=== PATIENT | female | born 1950 | race Caucasian/White ===

== ENCOUNTER 2024-10-01 16:55 | Inpatient (IN) | payer MEDICARE ==
[2024-10-01] MEDS: methylPREDNISolone SOD SUCCI 125 MG/2 ML VIAL IV STA (18:30)
[2024-10-01] MEDS: LACTATED RINGERS 1,000 ML IV ONE (18:32)
[2024-10-01] MEDS: MAGNESIUM SULFATE-D5W PMX 1 GM in DEXTROSE/WATER 1 100ML.BAG IVPB STA (18:33)
[2024-10-01 18:49] LABS: ALT 21 U/L (4-34); AST 31 U/L (14-36); African American GFR (CKD) 79 (>60 ml/min/1.73 sqM); Albumin 3.9 g/dL (3.5-5.0); Alkaline Phosphatase 68 U/L (38-126); Anion Gap 8 mmol/L; Blood Urea Nitrogen 20 mg/dL (7-17); Calcium 9.1 mg/dL (8.4-10.2); Carbon Dioxide 26 mmol/L (22-30); Chloride 101 mmol/L (98-107); Glucose 124 mg/dL (74-99); Magnesium 1.7 mg/dL (1.6-2.3); Non-African American GFR(CKD) 68 (>60 ml/min/1.73 sqM); Potassium 3.9 mmol/L (3.5-5.1); Sodium 135 mmol/L (137-145); Total Bilirubin 0.8 mg/dL (0.2-1.3); Total Protein 7.5 g/dL (6.3-8.2)
[2024-10-01 18:54] LABS: Basophils # (A) 0.03 10*3/uL (0.00-0.10); Basophils % (A) 0.2 %; Eosinophils # (A) 0.01 10*3/uL (0.04-0.35); Eosinophils % (A) 0.1 %; HCT 24.4 % (37.2-46.3); HGB 7.7 g/dL (12.0-15.0); Lymphocytes # (A) 1.11 10*3/uL (0.90-5.00); MCH 26.8 pg (27.0-32.0); MCHC 31.6 g/dL (32.0-37.0); Mean Platelet Volume 10.3 fL (9.5-12.2); Monocytes # (A) 0.95 10*3/uL (0.20-1.00); Monocytes % (A) 6.8 %; Neutrophils # (A) 11.75 10*3/uL (1.80-7.70); Neutrophils % (A) 84.5 %; Platelet Count 244 10*3/uL (140-440); RBC 2.87 10*6/uL (4.10-5.20); RDW 14.7 % (11.5-14.5); WBC 13.91 10*3/uL (4.50-10.00)
[2024-10-01 19:00] LABS: Partial Thromboplastin Time 25.4 sec (22.0-30.0); Prothrombin Time 11.1 sec (10.0-12.5)
--- NOTE | 2024-10-01 19:13 | XR ---
EXAMINATION TYPE: XR chest 2V DATE OF EXAM: 10/01/2024 7:00 PM COMPARISON: None CLINICAL INDICATION: Female, 74 years old with history of difficulty breathing; [facility] TECHNIQUE: XR chest 2V Frontal and lateral views of the chest. FINDINGS: Lungs/Pleura: There is no evidence of pleural effusion, focal consolidation, or pneumothorax. Pulmonary vascularity: Pulmonary vascular congestion. Heart/mediastinum: Cardiomediastinal silhouette is unremarkable. Musculoskeletal: No acute osseous pathology. IMPRESSION: Pulmonary vascular congestion correlate serum BNP. [facility], , 10/01/2024 7:11 PM
[2024-10-01] MEDS: ACETAMINOPHEN TAB 500 MG TAB PO STA (19:20)
[2024-10-01] MEDS: IPRATROPIUM-ALBUTEROL 3 ML NEB INHALATION STA (19:34)
[2024-10-01 19:38] LABS: Influenza A Not Detected (Not Detectd); Influenza B Not Detected (Not Detectd); RSV Not Detected (Not Detectd)
[2024-10-01] MEDS ORDERED: IPRATROPIUM-ALBUTEROL 3 ML NEB INHALATION PRN (20:09)
[2024-10-01] MEDS ORDERED: PNEUMONIA PROTOCOL UTILIZED 1 EACH MISC PO PRN (20:10)
--- NOTE | 2024-10-01 20:30 | ED ---
General Adult HPI - General Chief complaint: Shortness of Breath Stated complaint: Cough, Fever, SOB, Weakness Time Seen by Provider: 10/01/24 17:32 Source: patient, RN notes reviewed, old records reviewed Mode of arrival: wheelchair Limitations: no limitations - History of Present Illness Initial comments: Patient is a 74-year-old female presents emergency department complaining of cough, congestion, difficulty in breathing for the last week or so. Also weakness. Does endorse having cough, low-grade fevers, shortness of breath. Has a history of COPD/asthma. No history of congestive heart failure or other cardiac disease. Is typically not on oxygen at home. States that for the last week she has been having worsening productive cough, low-grade fevers. Presents for further evaluation at this time. Denies nausea or vomiting or diarrhea. No abdominal pain. Endorses just general chest tightness with coughing. No other acute complaints. No known sick contacts. Describes the productive cough is produced seeing green-yellow sputum sometimes. No other complaints at this time. Presents for further evaluation.Denies worsening orthopnea. Denies lower extremity edema. Denies paroxysmal nocturnal dyspnea. Symptoms all seem to be upper respiratory infection in nature considering the productive cough and low- grade fevers. Could also include her baseline COPD and asthma. - Related Data Home Medications Medication Instructions Recorded Confirmed Albuterol Sulfate [Ventolin HFA] 2 puff INHALATION RT-Q4H PRN 10/01/24 10/01/24 Fluticasone/Umeclidin/Vilanter 1 puff INHALATION RT-DAILY 10/01/24 10/01/24 [Trelegy Ellipta 100-62.5-25] Lovastatin [Mevacor] 40 mg PO HS 10/01/24 10/01/24 Montelukast [Singulair] 10 mg PO HS 10/01/24 10/01/24 Vitamin D3 Chewable(Unknown Dose) 2 tab PO DAILY 10/01/24 10/01/24 amLODIPine [Norvasc] 5 mg PO DAILY 10/01/24 10/01/24 Allergies Allergy/AdvReac Type Severity Reaction Status Date / Time No Known Allergies Allergy Verified 10/01/24 20:55 Review of Systems ROS Statement: Those systems with pertinent positive or pertinent negative responses have been documented in the HPI. Review of Systems: CONST: Endorses fever EYES: Denies blurry vision ENT: Endorses nasal congestion C/V: Denies Chest pain RESP: Endorses cough, shortness of breath GI: Denies abdominal pain : Denies dysuria SKIN: Denies rash. MSK: Denies joint pain. NEURO: Denies headache ROS Other: All systems not noted in ROS Statement are negative. Past Medical History Past Medical History: Asthma, COPD History of Any Multi-Drug Resistant Organisms: None Reported Past Surgical History: Hysterectomy, Orthopedic Surgery Additional Past Surgical History / Comment(s): ankle surgery Smoking Status: Former smoker Past Alcohol Use History: None Reported Past Drug Use History: None Reported General Exam - General Exam Comments Initial Comments: General: Appears in no acute distress. Low-grade fever HEAD: Normal with no signs of head trauma. EYES: PERRLA, EOMI, conjunctiva normal, no discharge. ENT: Hearing grossly intact, normal oropharynx. RESPIRATORY: Bilateral end expiratory wheezing. Hypoxic on room air to 86%. No significant increased work of breathing. C/V: Regular rate and rhythm. S1 and S2 auscultated, no edema, peripheral pulses 2+ and intact throughout ABD: Abd is soft, nontender, nondistended EXT: Normal range of motion, no obvious deformity SKIN: No rashes or lesions observed on exposed skin. NEURO: Alert and oriented x 4. Limitations: no limitations Course Vital Signs 10/01/24 10/01/24 10/01/24 16:57 18:38 19:35 Temperature 99.9 F H Pulse Rate 84 77 80 Respiratory 18 20 Rate Blood Pressure 140/97 154/73 O2 Sat by Pulse 86 L 92 L Oximetry 10/01/24 10/01/24 19:46 21:13 Temperature 98.9 F Pulse Rate 80 69 Respiratory 20 Rate Blood Pressure 132/75 O2 Sat by Pulse 94 L Oximetry Medical Decision Making - Medical Decision Making Was pt. sent in by a medical professional or institution (, PA, INDEX EDITOR, urgent care, hospital, or skilled nursing...) When possible be specific @ -No Did you speak to anyone other than the patient for history (EMS, parent, family, police, friend...)? What history was obtained from this source @ -No Did you review nursing and triage notes (agree or disagree)? Why? @ -I reviewed and agree with nursing and triage notes Were old charts reviewed (outside hosp., previous admission, EMS record, old EKG, old radiological studies, urgent care reports/EKG's, skilled nursing records)? Report findings @ -Old charts reviewed showing patient with a history of COPD and asthma. Differential Diagnosis (chest pain, altered mental status, abdominal pain women, abdominal pain men, vaginal bleeding, weakness, fever, dyspnea, syncope, headache, dizziness, GI bleed, back pain, seizure, CVA, palpatations, mental health, musculoskeletal)? @ -Differential Dyspnea: Coronary syndrome, arrhythmia, tamponade, asthma, COPD, pulmonary embolism, pneumonia, pneumothorax, pulmonary effusion, anaphylaxis, diabetic ketoacidosis, flailed chest, pulmonary contusion, diaphragmatic rupture, anemia, neuromuscular, this is not meant to be an all-inclusive list. EKG interpreted by me (3pts min.). @ -As above X-rays interpreted by me (1pt min.). @ -Chest x-ray reveals what radiology describes as pulmonary vascular congestion however could also be atypical pneumonia, which seems more likely with her symptoms. CT interpreted by me (1pt min.). @ -None done U/S interpreted by me (1pt. min.). @ -None done What testing was considered but not performed or refused? (CT, X-rays, U/S, labs)? Why? @ -None What meds were considered but not given or refused? Why? @ -None Did you discuss the management of the patient with other professionals (professionals i.e. , PA, INDEX EDITOR, lab, RT, psych nurse, social work professor, technical writing lead/mgr, teacher, classification officer, rehabilitation caseworker)? Give summary @ -Discussed with the admitting provider, Dr. Blanco of [facility] or accepted the admission. Was smoking cessation discussed for >3mins.? @ -No Was critical care preformed (if so, how long)? @ -Yes, 38 minutes Were there social determinants of health that impacted care today? How? (Homelessness, low income, unemployed, alcoholism, drug addiction, transportation, low edu. Level, literacy, decrease access to med. care, halfway, rehab)? @ -No Was there de-escalation of care discussed even if they declined (Discuss DNR or withdrawal of care, Hospice)? DNR status @ -No What co-morbidities impacted this encounter? (DM, HTN, Smoking, COPD, CAD, Cancer, CVA, ARF, Chemo, Hep., AIDS, mental health diagnosis, sleep apnea, morbid obesity)? @ -Asthma/COPD Was patient admitted / discharged? Hospital course, mention meds given and route, prescriptions, significant lab abnormalities, going to OR and other pertinent info. @ -Patient presents with hypoxic respiratory failure with fevers and URI symptoms. Have been ongoing for a few days. We will obtain pulmonary workup. She was in agreement this plan. Patient placed on nasal cannula oxygen at 3 L nasal cannula and that did seem to improve her hypoxia. She is starting IV fluids. She is given a breathing treatment and IV steroids. She was in agreement this plan. EKG shows no signs of acute ischemia. Chest x-ray reveals what radiology is calling pulmonary vascular congestion but seems more atypical pneumonia considering patient's symptoms. No concern for CHF. BNP did return within acceptable limits. Echo was ordered which is to further rule out congestive heart failure, however I have very low suspicion at this time. Patient's labs remarkable for negative viral swabs. Patient does have a leukocytosis of 13.9 and a mild anemia of 7.7. I discussed results with patient. She is feeling slightly improved. Patient does not meet sepsis criteria at this time as her only SIRS criteria is her leukocytosis. However we will continue to monitor. Lactic acid within normal limits. Patient was placed on maintenance infusion of lactated Ringer's in a ddition to antibiotics for the atypical pneumonia. Blood culture was obtained and sent. We have continue with IV steroids and breathing treatments. She was in agreement this plan. Pulmonology consulted. I spoke with the admitting provider, Dr. Blanco who accepted the admission. Undiagnosed new problem with uncertain prognosis? @ -No Drug Therapy requiring intensive monitoring for toxicity (Heparin, Nitro, Insulin, Cardizem)? @ -No Were any procedures done? @ -No Diagnosis/symptom? @ -Hypoxic respiratory failure secondary to COPD exacerbation as well as atypical pneumonia/tracheobronchitis Acute, or Chronic, or Acute on Chronic? @ -Acute Uncomplicated (without systemic symptoms) or Complicated (systemic symptoms)? @ -Complicated Side effects of treatment? @ -No Exacerbation, Progression, or Severe Exacerbation? @ -No Poses a threat to life or bodily function? How? (Chest pain, USA, HI, pneumonia, PE, COPD, DKA, ARF, appy, cholecystitis, CVA, Diverticulitis, Homicidal, Soares icidal, threat to staff... and all critical care pts) @ -Yes - Lab Data Result diagrams: 10/01/24 18:23 10/01/24 18:23 Lab Results 10/01/24 10/01/24 10/01/24 Range/Units 18:23 18:23 18:23 WBC 13.91 H (4.50-10.00) 10*3/uL RBC 2.87 L (4.10-5.20) 10*6/uL Hgb 7.7 L (12.0-15.0) g/dL Hct 24.4 L (37.2-46.3) % MCV 85.0 (80.0-97.0) fL MCH 26.8 L (27.0-32.0) pg MCHC 31.6 L (32.0-37.0) g/dL Plt Count 244 (140-440) 10*3/uL MPV 10.3 (9.5-12.2) fL Immature Gran % (Auto) 0.4 % Neutrophils % 84.5 % Lymphocytes % 8.0 % Monocytes % 6.8 % Eosinophils % 0.1 % Basophils % 0.2 % Immature Gran # 0.06 H (0.00-0.04) 10*3/uL Neutrophils # 11.75 H (1.80-7.70) 10*3/uL Lymphocytes # 1.11 (0.90-5.00) 10*3/uL Monocytes # 0.95 (0.20-1.00) 10*3/uL Eosinophils # 0.01 L (0.04-0.35) 10*3/uL Basophils # 0.03 (0.00-0.10) 10*3/uL PT 11.1 (10.0-12.5) sec INR 1.0 (<1.2) APTT 25.4 (22.0-30.0) sec Sodium 135 L (137-145) mmol/L Potassium 3.9 (3.5-5.1) mmol/L Chloride 101 (98-107) mmol/L Carbon Dioxide 26 (22-30) mmol/L Anion Gap 8 mmol/L BUN 20 H (7-17) mg/dL Creatinine 0.86 (0.52-1.04) mg/dL Est GFR (CKD-EPI)AfAm 79 (>60 ml/min/1.73 sqM) Est GFR (CKD-EPI)NonAf 68 (>60 ml/min/1.73 sqM) Glucose 124 H (74-99) mg/dL Plasma Lactic Acid Lane (0.7-2.0) mmol/L Calcium 9.1 (8.4-10.2) mg/dL Magnesium 1.7 (1.6-2.3) mg/dL Total Bilirubin 0.8 (0.2-1.3) mg/dL AST 31 (14-36) U/L ALT 21 (4-34) U/L Alkaline Phosphatase 68 (38-126) U/L NT-Pro-B Natriuret Pep pg/mL Total Protein 7.5 (6.3-8.2) g/dL Albumin 3.9 (3.5-5.0) g/dL Influenza Type A (PCR) (Not Detectd) Influenza Type B (PCR) (Not Detectd) RSV (PCR) (Not Detectd) SARS-CoV-2 (PCR) (Not Detectd) 10/01/24 10/01/24 10/01/24 Range/Units 18:23 18:23 18:23 WBC (4.50-10.00) 10*3/uL RBC (4.10-5.20) 10*6/uL Hgb (12.0-15.0) g/dL Hct (37.2-46.3) % MCV (80.0-97.0) fL MCH (27.0-32.0) pg MCHC (32.0-37.0) g/dL Plt Count (140-440) 10*3/uL MPV (9.5-12.2) fL Immature Gran % (Auto) % Neutrophils % % Lymphocytes % % Monocytes % % Eosinophils % % Basophils % % Immature Gran # (0.00-0.04) 10*3/uL Neutrophils # (1.80-7.70) 10*3/uL Lymphocytes # (0.90-5.00) 10*3/uL Monocytes # (0.20-1.00) 10*3/uL Eosinophils # (0.04-0.35) 10*3/uL Basophils # (0.00-0.10) 10*3/uL PT (10.0-12.5) sec INR (<1.2) APTT (22.0-30.0) sec Sodium (137-145) mmol/L Potassium (3.5-5.1) mmol/L Chloride (98-107) mmol/L Carbon Dioxide (22-30) mmol/L Anion Gap mmol/L BUN (7-17) mg/dL Creatinine (0.52-1.04) mg/dL Est GFR (CKD-EPI)AfAm (>60 ml/min/1.73 sqM) Est GFR (CKD-EPI)NonAf (>60 ml/min/1.73 sqM) Glucose (74-99) mg/dL Plasma Lactic Acid Lane 1.1 (0.7-2.0) mmol/L Calcium (8.4-10.2) mg/dL Magnesium (1.6-2.3) mg/dL Total Bilirubin (0.2-1.3) mg/dL AST (14-36) U/L ALT (4-34) U/L Alkaline Phosphatase (38-126) U/L NT-Pro-B Natriuret Pep 86 pg/mL Total Protein (6.3-8.2) g/dL Albumin (3.5-5.0) g/dL Influenza Type A (PCR) Not Detected (Not Detectd) Influenza Type B (PCR) Not Detected (Not Detectd) RSV (PCR) Not Detected (Not Detectd) SARS-CoV-2 (PCR) Not Detected (Not Detectd) - EKG Data -: EKG Interpreted by Me EKG Comments: 12-lead Electrocardiogram Interpretation Note EKG was reviewed and interpreted by myself. 12-lead ECG performed at 1904 is interpreted by me as revealing normal sinus rhythm with incomplete right bundle branch block at a rate of 77 beats per minute. [place] is normal. HI interval is 148 ms, QRS durations 101 ms, QTc is 388 ms.. There were no ST or T wave abnormalities to suggest myocardial ischemia or injury. R wave progression across the precordium was satisfactory. By my interpretation this EKG is non- diagnostic for acute ischemia. Critical Care Time Critical Care Time: Yes Total Critical Care Time: 38 Disposition Clinical Impression: COPD (chronic obstructive pulmonary disease), Tracheobronchitis, Hypoxic respiratory failure, Pneumonia Disposition: ADMITTED IP TO THIS HOSP Condition: Serious Time of Disposition: 20:30
[2024-10-01] MEDS ORDERED: NALOXONE 0.4 MG/ML 1 ML VIAL IV PRN (20:31)
[2024-10-01] MEDS ORDERED: ACETAMINOPHEN TAB 325 MG TAB PO PRN (20:31)
[2024-10-01 21:22] LABS: Appearance,Urine Cloudy (Clear); Bacteria,Urine Rare /hpf; Bilirubin,Urine Negative (Negative); Blood,Urine Small (Negative); Color,Urine Yellow; Glucose,Urine (UA) Negative (Negative); Ketones,Urine Negative (Negative); Leukocyte Esterase,Urine Negative (Negative); Mucus,Urine Occasional /hpf; Nitrite,Urine Negative (Negative); PH, Urine 5.5 (5.0-8.0); Protein,Urine 2+ (Negative); RBC,Urine 3 /hpf (0-5); Specific Gravity,Urine 1.022 (1.001-1.035); Squamous Epithelial Cell,Urine 2 /hpf (0-4); Urobilinogen,Urine <2.0 mg/dL (<2.0); WBC,Urine 2 /hpf (0-5)
[2024-10-01] MEDS: LACTATED RINGERS 1,000 ML IV SCH (21:41)
[2024-10-01] MEDS: AZITHROMYCIN 500 MG in SODIUM CHLORIDE 0.9% 250 ML IVPB STA (21:42)
[2024-10-02] MEDS: methylPREDNISolone SOD SUCCI 40 MG/ML 1 ML VIAL IV SCH ×2 (00:19→05:31)
--- NOTE | 2024-10-02 02:28 | P.CNPUL ---
History of Present Illness Consult date: 10/02/24 Requesting physician: Anil Orellana Reason for consult: COPD Chief complaint: Shortness of breath, cough, wheezing, chest tightness History of present illness: Patient is a 74-year-old female with past medical history significant for hypertension, hyperlipidemia, and COPD. She recently has moved to [place] from [place] last summer. Has not been established with a local PCP yet. Adams s have history of COPD. Usually maintained on a Trelegy maintenance inhaler, with albuterol nebs and inhaler as needed. Not normally oxygen dependent. She is a previous tobacco smoker, quit approximately 15 years ago. Chief complaint shortness of breath progressively worsening over the last week or so. Associated wheezing, chest tightness, increased cough with mostly white sputum production, intermittent low-grade fevers. Symptoms did reportedly improve on Sunday and then worsened. No recent outpatient evaluation/treatment. No notable sick contacts. No recent travel. Workup in the emergency department including a chest x-ray showing stable cardiac silhouette with interstitial prominence. No focal consolidations. Denies history of heart failure. Denies chest pain, heart palpitations, syncopal events, orthopnea, lower extremity edema. Viral 4 Plex screen negative for influenza A/B, RSV, COVID. She was febrile with a temperature of 99.9 F on arrival. CBC: WBC count 13.9, h emoglobin 7.7, platelets 244. CMP with a sodium 135, potassium 3.9, chloride 101, serum bicarb 26, BUN 20, creatinine 0.86, glucose 124. Lactic 1.1. LFTs not elevated. NT proBNP low at 86. Urinalysis unremarkable for infection. Patient currently being evaluated in the emergency department. Breathing is nonlabored, currently on 2 L/min nasal cannula. Her COPD is active and she is audibly wheezing. She has been started on combination of DuoNebs [id number], Symbicort inhaler, and IV Solu-Medrol. Empirically started on a combination of azithromycin and Rocephin in the ED. Current vital signs: Temperature 98.6 F, heart rate 67 bpm, blood pressure 134/74 mmHg, nontachypneic, SpO2 recorded at 95% on 3 L/min nasal cannula. Review of Systems Constitutional: Reports chills, Reports fatigue, Reports fever, Reports poor appetite, Reports sweats, Denies weight gain, Denies weight loss Ears, nose, mouth and throat: Reports nasal congestion, Reports nasal discharge, Denies headache, Denies post-nasal drip, Denies sinus pain, Denies sinus pressure, Denies sore throat, Denies voice changes Cardiovascular: Reports as per HPI Respiratory: Reports as per HPI Gastrointestinal: Reports loss of appetite, Reports nausea, Denies abdominal pain, Denies coffee ground emesis, Denies diarrhea, Denies hematemesis, Denies hematochezia, Denies melena, Denies vomiting Genitourinary: Denies dysuria, Denies flank pain, Denies hematuria Musculoskeletal: Denies limitation of motion Integumentary: Denies rash, Denies unusual bruising Neurological: Denies headaches, Denies seizures, Denies syncope Psychiatric: Denies anxiety, Denies depression Past Medical History Past Medical History: Asthma, COPD History of Any Multi-Drug Resistant Organisms: None Reported Past Surgical History: Hysterectomy, Orthopedic Surgery Additional Past Surgical History / Comment(s): ankle surgery Smoking Status: Former smoker Past Alcohol Use History: None Reported Past Drug Use History: None Reported Medications and Allergies Home Medications Medication Instructions Recorded Confirmed Type Albuterol Sulfate [Ventolin HFA] 2 puff INHALATION RT-Q4H PRN 10/01/24 10/01/24 History Fluticasone/Umeclidin/Vilanter 1 puff INHALATION RT-DAILY 10/01/24 10/01/24 History [Trelegy Ellipta 100-62.5-25] Lovastatin [Mevacor] 40 mg PO HS 10/01/24 10/01/24 History Montelukast [Singulair] 10 mg PO HS 10/01/24 10/01/24 History Vitamin D3 Chewable(Unknown Dose) 2 tab PO DAILY 10/01/24 10/01/24 History amLODIPine [Norvasc] 5 mg PO DAILY 10/01/24 10/01/24 History Allergies Allergy/AdvReac Type Severity Reaction Status Date / Time No Known Allergies Allergy Verified 10/01/24 20:55 Physical Exam Vitals: Vital Signs Temp Pulse Resp BP Pulse Ox 10/02/24 00:09 98.6 F 67 21 134/74 95 10/01/24 21:13 98.9 F 69 20 132/75 94 L 10/01/24 19:46 80 10/01/24 19:35 80 10/01/24 18:38 77 20 154/73 92 L 10/01/24 16:57 99.9 F H 84 18 140/97 86 L Intake and Output 10/01/24 10/01/24 10/02/24 14:59 22:59 06:59 Other: Weight 90.718 kg GENERAL EXAM: Alert, 74-year-old white female, without signs of CO2 narcosis, on 2 L/min nasal cannula, comfortable in no apparent distress. HEAD: Normocephalic and atraumatic EYES: Normal reaction of pupils, equal size. NOSE: Clear with pink turbinates. THROAT: No erythema or exudates. NECK: No masses, no JVD. CHEST: No chest wall deformity. LUNGS: Equal air entry with diffuse expiratory wheezing heard bilaterally throughout. No conversational dyspnea or accessory muscle use while at rest CVS: S1 and S2 normal with no audible murmur, regular rhythm. No extra heart sounds ABDOMEN: No hepatosplenomegaly, active bowel sounds, no guarding or rigidity. SPINE: No scoliosis or deformity SKIN: No rashes CENTRAL NERVOUS SYSTEM: No focal deficits, tone is normal in all 4 extremities. EXTREMITIES: There is no peripheral edema, clubbing, or cyanosis. Peripheral pulses are intact. Results - Laboratory Findings CBC and BMP: 10/02/24 06:19 10/02/24 06:19 PT/INR, D-dimer PT 11.1 sec (10.0-12.5) 10/01/24 18:23 INR 1.0 (<1.2) 10/01/24 18:23 Abnormal lab findings: Abnormal Labs 10/01/24 10/01/24 10/01/24 18:23 18:23 21:09 WBC 13.91 H RBC 2.87 L Hgb 7.7 L Hct 24.4 L MCH 26.8 L MCHC 31.6 L Immature Gran # 0.06 H Neutrophils # 11.75 H Eosinophils # 0.01 L Sodium 135 L BUN 20 H Glucose 124 H Urine Appearance Cloudy H Urine Protein 2+ H Urine Blood Small H Urine Bacteria Rare H Urine Mucus Occasional H - Diagnostic Findings Chest x-ray: image reviewed Assessment and Plan Assessment: Acute exacerbation of COPD, secondary to acute tracheobronchitis; chest x-ray showing stable cardiac silhouette with interstitial prominence. No focal consolidations. Viral 4 Plex screen negative for influenza A/B, RSV, COVID. Acute hypoxemic respiratory failure, currently on 2 L/min nasal cannula, secondary to above Acute leukocytosis Anemia, no reported blood loss Hypertension History of hyperlipidemia Obesity, with a BMI of 37.8 kg/m Former tobacco smoker, quit approximately 15 years ago Plan: Patient's medications, labs, chest x-ray reviewed Started on combination of Symbicort inhaler with Spiriva, and albuterol nebs [id number] as well as IV Solu-Medrol Continue empiric antibiotics Sputum culture was collected Procalcitonin level pending We will continue to follow I have personally seen and examined the patient, performed the documentation and the assessment and plan as written. Number of minutes spent on the visit:20 This is a joint evaluation that was done along with the nurse practitioner. His evaluation was done and 32 minutes. The patient was seen in the emergency department. The patient was already feeling better while being treated with DuoNeb nebulizer treatments, Symbicort/Spiriva as maintenance and IV Solu- Medrol. Noted the patient utilizes trilogy Ellipta regarding his COPD on outpatient basis. Reviewed the chest x-ray findings and the findings are essentially consistent with COPD. No airspace disease. No consolidation. There are some cardiomegaly with mild pulm vascular congestion. Nevertheless, the patient's proBNP level was 86. Procalcitonin level is at 0.24. The serum iron level was low at 18 and the patient does have a underlying iron deficiency. The hemoglobin levels are somewhat confusing. Initial hemoglobin level was at 7.7 and subsequent hemoglobin level was at 13. This obviously needs to be repe ated. Electrolytes all within normal. Normal renal function. The patient has no signs of any CO2 narcosis. She is a former smoker. Baseline pulmonary function test is not available. Viral 4 Plex was negative. Continue same management. Will continue to follow. She was also noted to have some edema in lower extremities and Dopplers were ordered. She is on Lovenox for DVT prophylaxis. Time with Patient: Greater than 30
--- NOTE | 2024-10-02 03:09 | P.HPIM ---
History of Present Illness H&P Date: 10/01/24 Patient is a 74-year-old female with COPD not on home oxygen, asthma, hyperlipidemia and hypertension here for shortness of breath. Patient reported that she has been having shortness of breath with a productive cough, fevers about 101 Fahrenheit since last week. She tried taking Tylenol Motrin and a breathing treatment since that time but her symptoms have not improved. Her shortness of breath worsened this week which led her to seek care. She denied chest pain, palpitations, extremity swelling, calf pain, recent travel or hospitalization. She was exposed to her daughter that was also having cough and fever last week. On admission: Vitals: Temperature 99.9 F, pulse rate 84, respiratory rate 18, blood pressure 140/97, O2 saturation 86% on room air. 92% on 3L nasal cannula. Labs: WBC 13.91, hemoglobin 7.7, MCV 85, platelet count 244,000, sodium 135, bicarb 26, BUN 20, creatinine 0.86, glucose 124. Cepheid 4 Plex negative. Coagulation panel unremarkable. Liver enzymes unremarkable. Imaging: Chest x-ray showed pulmonary vascular congestion. ED documentation reviewed. IV antibiotics, 1 L bolus of lactated Ringer's and IV Solu-Medrol given in the ED. Review of systems: Pertinent positives and negatives as discussed in HPI, a complete review of systems was performed and all other systems are negative. Social history: Tobacco: Former smoker. Quit 15 years ago. Smoked 1 pack/day for 30 years Alcohol: Denied alcohol intake history Recreational drugs: Denied illicit or recreational drug use Travel: No recent prolonged travel Physical examination: Vital signs reviewed General: non toxic, no distress, appears at stated age, on nasal cannula Derm: no unusual rashes/lesions, warm Head: atraumatic, normocephalic, symmetric Eyes: EOMI, anicteric sclera, pupils equal round reactive to light ENT: Nose and ears atraumatic Neck: No cervical lymphadenopathy, trachea midline, supple Mouth: no lip lesion, mucus membranes moist Cardiovascular: S1S2 reg, no murmur Lungs: diffuse expiratory wheezing and diminished breath sounds, no accessory muscle use Abdominal: soft, nondistended, nontender to palpation, no guarding Ext: muscle strength 5 out of 5 in all 4 extremities grossly, no gross muscle atrophy, no contractures, positive dorsalis pedis pulse bilateral, +2 pitting right lower extremity edema Neuro: CN II-XI grossly intact, no gross focal neuro deficits Psych: Alert and oriented x 3, appropriate affect and mood Assessment/Plan: 74-year-old female with COPD and asthma here for evaluation of shortness of breath. Imaging correlates to COPD exacerbation with viral pneumonia. Found to have anemia on labs. The patient is admitted with an anticipated greater than 2 midnight stay for evaluation of COPD and anemia Active: #. Acute hypoxic respiratory failure secondary to COPD exacerbation #. Pneumonia, likely viral -Chest x-ray showed pulmonary vascular congestion -Cepheid 4 Plex negative. However based on symptoms and imaging, pneumonia is likely viral in cause such as metapneumovirus -Cotinue DuoNeb inhaler QID and PRN -Solumedrol 125mg IV given in the ED. Continue with Solumedrol 40mg IV every 12 hours -Continue Symbicort 160-4.5mcg twice daily -Supplemental oxygen as needed -Sputum culture pending -Check CRP and procalcitonin #. Normocytic anemia - Hemoglobin 7.7, MCV 85 - Patient does not show any signs of bleeding - Check iron panel, folate, vitamin B12 #. Right lower extremity swelling -Patient +2 pitting edema of the right lower extremity. Patient noted that right lower extremity swelling is not new to her. -Right lower extremity venous doppler ultrasound Chronic Conditions: #. Asthma #. Hyperlipidemia #. Hypertension - Continue atorvastatin 10 mg and amlodipine 5 mg F: Oral intake N: Heart healthy diet A: Ambulate as needed DVT ppx: Lovenox 40 mg subcu daily GI ppx: Protonix 40 mg p.o. daily CODE STATUS: Full Discussed with: Patient Anticipated discharge place: Home Fátima Casillas MD PGY-1 Internal Medicine Dictation was produced using [employer] dictation software. please excuse any grammatical, word or spelling errors. Past Medical History Past Medical History: Asthma, COPD History of Any Multi-Drug Resistant Organisms: None Reported Past Surgical History: Hysterectomy, Orthopedic Surgery Additional Past Surgical History / Comment(s): ankle surgery Smoking Status: Former smoker Past Alcohol Use History: None Reported Past Drug Use History: None Reported Medications and Allergies Home Medications Medication Instructions Recorded Confirmed Type Albuterol Sulfate [Ventolin HFA] 2 puff INHALATION RT-Q4H PRN 10/01/24 10/01/24 History Fluticasone/Umeclidin/Vilanter 1 puff INHALATION RT-DAILY 10/01/24 10/01/24 History [Trelegy Ellipta 100-62.5-25] Lovastatin [Mevacor] 40 mg PO HS 10/01/24 10/01/24 History Montelukast [Singulair] 10 mg PO HS 10/01/24 10/01/24 History Vitamin D3 Chewable(Unknown Dose) 2 tab PO DAILY 10/01/24 10/01/24 History amLODIPine [Norvasc] 5 mg PO DAILY 10/01/24 10/01/24 History Allergies Allergy/AdvReac Type Severity Reaction Status Date / Time No Known Allergies Allergy Verified 10/01/24 20:55 Physical Exam Vitals: Vital Signs Temp Pulse Resp BP Pulse Ox 10/01/24 19:46 80 10/01/24 19:35 80 10/01/24 18:38 77 20 154/73 92 L 10/01/24 16:57 99.9 F H 84 18 140/97 86 L Intake and Output 10/01/24 10/01/24 10/01/24 06:59 14:59 22:59 Other: Weight 90.718 kg Results CBC & Chem 7: 10/02/24 06:19 10/02/24 06:19 Labs: Abnormal Lab Results - Last 24 Hours (Table) 10/01/24 10/01/24 Range/Units 18:23 18:23 WBC 13.91 H (4.50-10.00) 10*3/uL RBC 2.87 L (4.10-5.20) 10*6/uL Hgb 7.7 L (12.0-15.0) g/dL Hct 24.4 L (37.2-46.3) % MCH 26.8 L (27.0-32.0) pg MCHC 31.6 L (32.0-37.0) g/dL Immature Gran # 0.06 H (0.00-0.04) 10*3/uL Neutrophils # 11.75 H (1.80-7.70) 10*3/uL Eosinophils # 0.01 L (0.04-0.35) 10*3/uL Sodium 135 L (137-145) mmol/L BUN 20 H (7-17) mg/dL Glucose 124 H (74-99) mg/dL
[2024-10-02] MEDS: LACTATED RINGERS 1,000 ML IV SCH (03:23)
[2024-10-02 07:20] LABS: ALT 23 U/L (4-34); AST 33 U/L (14-36); African American GFR (CKD) 85 (>60 ml/min/1.73 sqM); Albumin 3.7 g/dL (3.5-5.0); Alkaline Phosphatase 71 U/L (38-126); Anion Gap 11 mmol/L; Blood Urea Nitrogen 21 mg/dL (7-17); Calcium 9.4 mg/dL (8.4-10.2); Carbon Dioxide 28 mmol/L (22-30); Chloride 99 mmol/L (98-107); Glucose 154 mg/dL (74-99); Non-African American GFR(CKD) 73 (>60 ml/min/1.73 sqM); Sodium 138 mmol/L (137-145); Total Bilirubin 0.4 mg/dL (0.2-1.3); Total Protein 7.4 g/dL (6.3-8.2)
[2024-10-02] MEDS: IPRATROPIUM-ALBUTEROL 3 ML NEB INHALATION SCH (07:50)
[2024-10-02] MEDS: TIOTROPIUM 2.5 MCG INHALER INHALATION SCH (07:51)
[2024-10-02] MEDS: SYMBICORT 160-4.5 MCG INHALER INHALATION SCH (07:51)
--- NOTE | 2024-10-02 07:55 | XR ---
EXAMINATION TYPE: XR chest 1V portable DATE OF EXAM: 10/02/2024 5:27 AM COMPARISON: Chest radiographs from 10/01/2024 TECHNIQUE: XR chest 1V portable Portable AP radiograph of the chest. CLINICAL INDICATION:Female, 74 years old with history of pneumonia; FINDINGS: Lungs/Pleura: There is no evidence of pleural effusion or pneumothorax. Right basilar subtle patchy airspace opacities. Pulmonary vascularity: Pulmonary vascular congestion. Heart/mediastinum: Cardiomediastinal silhouette is enlarged and stable. Musculoskeletal: No acute osseous pathology. IMPRESSION: Cardiomegaly and mild pulmonary vascular congestion. Correlate with BNP for congestive heart failure. Right basilar subtle patchy airspace opacities which may represent superimposed pneumonia versus jovany y pulmonary edema. [facility], , 10/02/2024 7:53 AM
[2024-10-02 08:05] LABS: HCT 42.3 % (37.2-46.3); MCH 26.7 pg (27.0-32.0); MCHC 30.7 g/dL (32.0-37.0); MCV 86.9 fL (80.0-97.0); Mean Platelet Volume 10.5 fL (9.5-12.2); Platelet Count 187 10*3/uL (140-440); RBC 4.87 10*6/uL (4.10-5.20); RDW 14.8 % (11.5-14.5); WBC 8.25 10*3/uL (4.50-10.00)
[2024-10-02] MEDS ORDERED: methylPREDNISolone SOD SUCCI 40 MG/ML 1 ML VIAL IV SCH (09:00)
[2024-10-02] MEDS: PANTOPRAZOLE 40 MG TABLET PO SCH (09:21)
[2024-10-02] MEDS: amLODIPine 5 MG TAB PO SCH (09:21)
[2024-10-02] MEDS: ENOXAPARIN 40 MG/0.4 ML SYRINGE SQ SCH (09:22)
[2024-10-02 10:24] LABS: Band Neutrophils % 4 %; Lymphocytes # (M) 0.41 k/uL (1.0-4.8); Neutrophils # (M) 7.83 k/uL (1.3-7.7); Neutrophils % (M) 91 %; Nucleated Red Blood Cells 0 /100 WBC (0-0); RBC Morphology Normal; Total Cells Counted 100
[2024-10-02 10:53] LABS: % Iron Saturation 5.26 (12.00-45.00)
--- NOTE | 2024-10-02 13:23 | P.PN ---
Subjective Progress Note Date: 10/02/24 Hospital Course: Patient is a 74-year-old female with COPD not on home oxygen, asthma, hyperlipidemia and hypertension here for shortness of breath. Patient reported that she has been having shortness of breath with a productive cough, fevers about 101 Fahrenheit since last week. She tried taking Tylenol Motrin and a breathing treatment since that time but her symptoms have not improved. Her shortness of breath worsened this week which led her to seek care. She denied chest pain, palpitations, extremity swelling, calf pain, recent travel or hospitalization. She was exposed to her daughter that was also having cough and fever last week. On admission: Vitals: Temperature 99.9 F, pulse rate 84, respiratory rate 18, blood pressure 140/97, O2 saturation 86% on room air. 92% on 3L nasal cannula. Labs: WBC 13.91, hemoglobin 7.7, MCV 85, platelet count 244,000, sodium 135, bicarb 26, BUN 20, creatinine 0.86, glucose 124. Cepheid 4 Plex negative. Coagulation panel unremarkable. Liver enzymes unremarkable. Imaging: Chest x-ray showed pulmonary vascular congestion. ED documentation reviewed. IV antibiotics, 1 L bolus of lactated Ringer's and IV Solu-Medrol given in the ED. Subjective: Patient seen and examined at bedside. No acute events overnight. Patient states he feels much better from when she first was admitted. Pertinent positives and negatives as discussed above, a complete review of systems was performed and all other systems are negative. Vitals: Signs Reviewed Physical Exam: General: nontoxic, no distress, appears at stated age Derm: warm, dry, intact Head: atraumatic, normocephalic, symmetric Eyes: EOMI, anicteric sclera Mouth: no lip lesion, mucus membranes moist Cardiovascular: S1 S2 reg, no murmur, rubs, or gallops Lungs: Diminished lung sounds bilaterally, mild expiratory wheezing, no rhonchi, no rales, no accessory muscle use Abdominal: soft, non-tender to palpataion, no appreciable organomegaly Extremities: no gross muscle atrophy, no edema, no contractures Neuro: Alert, Oriented, CNII-XII grossly intact, gait normal Psych: well appearing, appropriate affect Data Received Today: Pertinent Labs: WBC 8.25, Hgb 13, BUN 21, glucose 154, iron 18, TIBC 342, transferrin 246, B12 618, folate 13.3 Imaging: CXR independently interpreted displaying pulmonary vascular, right lower lobe airspace opacity Assessment and Plan: 74-year-old female with COPD and asthma here for evaluation of shortness of breath. Imaging correlates to COPD exacerbation with viral pneumonia. Found to have anemia on labs. The patient is admitted with an anticipated greater than 2 midnight stay for evaluation of COPD and anemia. Active: #. Acute hypoxic respiratory failure secondary to COPD exacerbation #. Pneumonia, likely viral -Cepheid 4 Plex negative -Continue DuoNeb inhaler QID and PRN -Continue with Solumedrol 60mg IV every 12 hours -Continue Symbicort 160-4.5mcg twice daily Continue with azithromycin 500 mg IVPB (day 2 of 3) Procalcitonin 0.24, CRP 17 -Supplemental oxygen as needed -Sputum culture, blood culture, and urine Legionella pending #. Normocytic anemia, resolved - Hemoglobin 7.7, MCV 85 - Patient does not show any signs of bleeding - iron 18, TIBC 342, transferrin 246, percent saturation 5.26 B12 618, folate 13.3 #. Right lower extremity swelling -Patient +2 pitting edema of the right lower extremity. Patient noted that right lower extremity swelling is not new to her. -Right lower extremity venous doppler ultrasound Chronic: #. Asthma #. Hyperlipidemia #. Hypertension - Continue atorvastatin 10 mg and amlodipine 5 mg F: Oral intake N: Heart healthy diet A: Ambulate as needed DVT ppx: Lovenox 40 mg subcu daily GI ppx: Protonix 40 mg p.o. daily Code status: Full code Anticipated discharge place: Pending clinical course Anticipated discharge time: Pending clinical course Simon Gonzalez MD PGY-1 IM Dictation was produced using [facility] dictation software. please excuse any grammatical, word or spelling errors. I have seen and evaluated the patient today. Discussed with the resident and agree with the residents finding and plan as documented in the resident's note. Changes highlighted in blue font. Objective - Vital Signs Vital signs: Vital Signs Temp 98.6 F 10/02/24 06:00 Pulse 76 10/02/24 08:10 Resp 18 10/02/24 06:00 BP 140/71 10/02/24 06:00 Pulse Ox 94 L 10/02/24 06:00 FiO2 Intake & Output 10/01/24 10/02/24 10/02/24 18:59 06:59 18:59 Weight 90.718 kg - Labs CBC & Chem 7: 10/02/24 06:19 10/02/24 06:19 Labs: Abnormal Lab Results - Last 24 Hours (Table) 10/01/24 10/01/24 10/01/24 Range/Units 18:23 18:23 21:09 WBC 13.91 H (4.50-10.00) 10*3/uL RBC 2.87 L (4.10-5.20) 10*6/uL Hgb 7.7 L (12.0-15.0) g/dL Hct 24.4 L (37.2-46.3) % MCH 26.8 L (27.0-32.0) pg MCHC 31.6 L (32.0-37.0) g/dL Immature Gran # 0.06 H (0.00-0.04) 10*3/uL Neutrophils # 11.75 H (1.80-7.70) 10*3/uL Eosinophils # 0.01 L (0.04-0.35) 10*3/uL Sodium 135 L (137-145) mmol/L BUN 20 H (7-17) mg/dL Glucose 124 H (74-99) mg/dL C-Reactive Protein (<1.0) mg/dL Urine Appearance Cloudy H (Clear) Urine Protein 2+ H (Negative) Urine Blood Small H (Negative) Urine Bacteria Rare H (None) /hpf Urine Mucus Occasional H (None) /hpf 10/02/24 10/02/24 10/02/24 Range/Units 06:19 06:19 06:19 WBC (4.50-10.00) 10*3/uL RBC (4.10-5.20) 10*6/uL Hgb (12.0-15.0) g/dL Hct (37.2-46.3) % MCH 26.7 L (27.0-32.0) pg MCHC 30.7 L (32.0-37.0) g/dL Immature Gran # (0.00-0.04) 10*3/uL Neutrophils # (1.80-7.70) 10*3/uL Eosinophils # (0.04-0.35) 10*3/uL Sodium (137-145) mmol/L BUN 21 H (7-17) mg/dL Glucose 154 H (74-99) mg/dL C-Reactive Protein 17.0 H (<1.0) mg/dL Urine Appearance (Clear) Urine Protein (Negative) Urine Blood (Negative) Urine Bacteria (None) /hpf Urine Mucus (None) /hpf
[2024-10-02] MEDS: AZITHROMYCIN 500 MG TAB PO SCH (19:50)
[2024-10-02] MEDS: ATORVASTATIN 10 MG TAB PO SCH (19:51)
[2024-10-03 06:32] LABS: HCT 40.3 % (37.2-46.3); HGB 12.2 g/dL (12.0-15.0); MCH 26.1 pg (27.0-32.0); MCHC 30.3 g/dL (32.0-37.0); MCV 86.1 fL (80.0-97.0); Mean Platelet Volume 10.9 fL (9.5-12.2); Platelet Count 211 10*3/uL (140-440); RBC 4.68 10*6/uL (4.10-5.20); RDW 14.7 % (11.5-14.5); WBC 13.31 10*3/uL (4.50-10.00)
[2024-10-03 06:48] LABS: African American GFR (CKD) 85 (>60 ml/min/1.73 sqM); Blood Urea Nitrogen 36 mg/dL (7-17); Calcium 9.5 mg/dL (8.4-10.2); Carbon Dioxide 25 mmol/L (22-30); Chloride 101 mmol/L (98-107); Glucose 132 mg/dL (74-99); Magnesium 2.3 mg/dL (1.6-2.3); Non-African American GFR(CKD) 73 (>60 ml/min/1.73 sqM)
[2024-10-03 06:55] LABS: Anion Gap 14 mmol/L; Sodium 140 mmol/L (137-145)
[2024-10-03 07:56] LABS: Band Neutrophils % 1 %; Monocytes # (M) 0.13 k/uL (0-1.0); Neutrophils # (M) 12.37 k/uL (1.3-7.7); Neutrophils % (M) 92 %; Nucleated Red Blood Cells 0 /100 WBC (0-0); Total Cells Counted 100
--- NOTE | 2024-10-03 10:37 | P.PN ---
Subjective Progress Note Date: 10/03/24 Hospital Course: Patient is a 74-year-old female with COPD not on home oxygen, asthma, hyperlipidemia and hypertension here for shortness of breath. Patient reported that she has been having shortness of breath with a productive cough, fevers about 101 Fahrenheit since last week. She tried taking Tylenol Motrin and a breathing treatment since that time but her symptoms have not improved. Her shortness of breath worsened this week which led her to seek care. She denied chest pain, palpitations, extremity swelling, calf pain, recent travel or hospitalization. She was exposed to her daughter that was also having cough and fever last week. On admission: Vitals: Temperature 99.9 F, pulse rate 84, respiratory rate 18, blood pressure 140/97, O2 saturation 86% on room air. 92% on 3L nasal cannula. Labs: WBC 13.91, hemoglobin 7.7, MCV 85, platelet count 244,000, sodium 135, bicarb 26, BUN 20, creatinine 0.86, glucose 124. Cepheid 4 Plex negative. Coagulation panel unremarkable. Liver enzymes unremarkable. Imaging: Chest x-ray showed pulmonary vascular congestion. ED documentation reviewed. IV antibiotics, 1 L bolus of lactated Ringer's and IV Solu-Medrol given in the ED. Subjective: Patient seen and examined at bedside. No acute events overnight. Patient states he feels much better from when she first was admitted. Pertinent positives and negatives as discussed above, a complete review of systems was performed and all other systems are negative. Vitals: Signs Reviewed Physical Exam: General: nontoxic, no distress, appears at stated age Derm: warm, dry, intact Head: atraumatic, normocephalic, symmetric Eyes: EOMI, anicteric sclera Mouth: no lip lesion, mucus membranes moist Cardiovascular: S1 S2 reg, no murmur, rubs, or gallops Lungs: Diminished lung sounds bilaterally, mild expiratory wheezing, no rhonchi, no rales, no accessory muscle use Abdominal: soft, non-tender to palpataion, no appreciable organomegaly Extremities: no gross muscle atrophy, no edema, no contractures Neuro: Alert, Oriented, CNII-XII grossly intact, gait normal Psych: well appearing, appropriate affect Data Received Today: Pertinent Labs: WBC 15.31, Hgb 12.2, platelet 211, immature granulocytes 0.10, BUN 36, creatinine 0.81 Imaging: Assessment and Plan: 74-year-old female with COPD and asthma here for evaluation of shortness of breath. Imaging correlates to COPD exacerbation with viral pneumonia. Found to have anemia on labs. The patient is admitted with an anticipated greater than 2 midnight stay for evaluation of COPD and anemia. Active: #. Acute hypoxic respiratory failure secondary to COPD exacerbation #. Suspected viral pneumonia #. Leukocytosis with left shift -Cepheid 4 Plex negative -Continue DuoNeb inhaler QID and PRN -Continue with Solumedrol 60mg IV switched to oral prednisone 40 mg daily -Continue Symbicort 160-4.5mcg twice daily Continue with azithromycin 500 mg IVPB (day 3 of 3) Procalcitonin 0.24, CRP 17 -Currently on 2 L nasal cannula not previously on home oxygen, continue to wean down, keep O2 sat between 88-92% -Sputum culture, blood culture negative Legionella pending #. Normocytic anemia, resolved #. Likely iron deficiency anemia - Hemoglobin 7.7, MCV 85 - Patient does not show any signs of bleeding - iron 18, TIBC 342, transferrin 246, percent saturation 5.26 B12 618, folate 13.3 - Consider oral iron at time of discharge #. Right lower extremity swelling -Patient +2 pitting edema of the right lower extremity. Patient noted that right lower extremity swelling is not new to her. -Right lower extremity venous doppler ultrasound Chronic: #. Asthma #. Hyperlipidemia #. Hypertension - Continue atorvastatin 10 mg and amlodipine 5 mg F: Oral intake N: Heart healthy diet A: Ambulate as needed DVT ppx: Lovenox 40 mg subcu daily GI ppx: Protonix 40 mg p.o. daily Code status: Full code Anticipated discharge place: Pending clinical course Anticipated discharge time: Pending clinical course Simon Gonzalez MD PGY-1 IM Dictation was produced using [employer] dictation software. please excuse any grammatical, word or spelling errors. I have seen and evaluated the patient today. Discussed with the resident and agree with the residents finding and plan as documented in the resident's note. Changes highlighted in blue font. Objective - Vital Signs Vital signs: Vital Signs Temp 98.1 F 10/03/24 03:27 Pulse 67 10/03/24 03:27 Resp 20 10/03/24 03:27 BP 138/71 10/03/24 03:27 Pulse Ox 94 L 10/03/24 03:27 FiO2 Intake & Output 10/02/24 10/03/24 10/03/24 18:59 06:59 18:59 Intake Total 120 Balance 120 Weight 90.718 kg 93.3 kg Intake: Oral 120 Other: Voiding Method Toilet Toilet # Voids 1 # Bowel Movements 1 - Labs CBC & Chem 7: 10/03/24 06:03 10/03/24 06:03 Labs: Abnormal Lab Results - Last 24 Hours (Table) 10/02/24 10/02/24 10/03/24 Range/Units 06:19 06:19 06:03 WBC 13.31 H (4.50-10.00) 10*3/uL MCH 26.7 L 26.1 L (27.0-32.0) pg MCHC 30.7 L 30.3 L (32.0-37.0) g/dL Immature Gran # 0.10 H (0.00-0.04) 10*3/uL Neutrophils # (Manual) 7.83 H (1.3-7.7) k/uL Lymphocytes # (Manual) 0.41 L (1.0-4.8) k/uL BUN (7-17) mg/dL Glucose (74-99) mg/dL Iron 18 L (50-170) UG/DL % Saturation 5.26 L (12.00-45.00) 10/03/24 Range/Units 06:03 WBC (4.50-10.00) 10*3/uL MCH (27.0-32.0) pg MCHC (32.0-37.0) g/dL Immature Gran # (0.00-0.04) 10*3/uL Neutrophils # (Manual) (1.3-7.7) k/uL Lymphocytes # (Manual) (1.0-4.8) k/uL BUN 36 H (7-17) mg/dL Glucose 132 H (74-99) mg/dL Iron (50-170) UG/DL % Saturation (12.00-45.00) Microbiology - Last 24 Hours (Table) 10/01/24 18:23 Blood Culture - Preliminary Blood 10/01/24 21:46 Gram Stain - Preliminary Sputum
[2024-10-03] MEDS ORDERED: ZOLPIDEM 5 MG TAB PO PRN (13:07)
--- NOTE | 2024-10-03 16:16 | P.PN ---
Subjective Progress Note Date: 10/03/24 Patient is a 74-year-old female with past medical history significant for hypertension, hyperlipidemia, and COPD. She recently has moved to [place] from [place] last summer. Has not been established with a local PCP yet. Does have history of COPD. Usually maintained on a Trelegy maintenance inhaler, with albuterol nebs and inhaler as needed. Not normally oxygen dependent. She is a previous tobacco smoker, quit approximately 15 years ago. Chief complaint shortness of breath progressively worsening over the last week or so. Associated wheezing, chest tightness, increased cough with mostly white sputum production, intermittent low-grade fevers. Symptoms did reportedly improve on Sunday and then worsened. No recent outpatient evaluation/treatment. No notable sick contacts. No recent travel. Workup in the emergency department including a chest x-ray showing stable cardiac silhouette with interstitial prominence. No focal consolidations. Denies history of heart failure. Denies chest pain, heart palpitations, syncopal events, orthopnea, lower extremity edema. Viral 4 Plex screen negative for influenza A/B, RSV, COVID. She was febrile with a temperature of 99.9 F on arrival. CBC: WBC count 13.9, hemoglobin 7.7, platelets 244. CMP with a sodium 135, potassium 3.9, chloride 101, serum bicarb 26, BUN 20, creatinine 0.86, glucose 124. Lactic 1.1. LFTs not elevated. NT proBNP low at 86. Urinalysis unremarkable for infection. Patient currently being evaluated in the emergency department. Breathing is nonlabored, currently on 2 L/min nasal cannula. Her COPD is active and she is audibly wheezing. She has been started on combination of DuoNebs [id number], Symbicort inhaler, and IV Solu-Medrol. Empirically started on a combination of azithromycin and Rocephin in the ED. Current vital signs: Temperature 98.6 F, heart rate 67 bpm, blood pressure 134/74 mmHg, nontachypneic, SpO2 recorded at 95% on 3 L/min nasal cannula. On 10/03/2024, the patient is being seen for a follow-up. The patient is feeling better compared to yesterday and that she seems to be less short of breath. She is still having some oxygen desaturation with activity. Pulse ox dropped down to 88% while walking. Otherwise, on 2 L of oxygen by nasal cannula, her pulse ox is around 92 to 94%. She continues to receive treatment for acute COPD exacerbation. She encountered side effects including insomnia and some restlessness while being on IV Solu-Medrol the patient was taken off the IV Solu-Medrol as currently she is on prednisone burst taper starting with 40 mg p.o. daily. She is also on Spiriva, Symbicort and DuoNeb treatments [id number]. She has been maintained on Trelegy Ellipta on an outpatient basis. Sputum sample is positive for Moraxella catarrhalis and the patient remains on Zithromax. The white cell count is 13 with a hemoglobin 12 and a platelet count of 211. Electrolytes are all within normal limits. Normal renal function. Legionella urine antigen was negative. Viral screen was also negative. Objective - Vital Signs Vital signs: Vital Signs Temp 98.5 F 10/03/24 11:10 Pulse 80 10/03/24 12:34 Resp 18 10/03/24 11:10 BP 132/67 10/03/24 11:10 Pulse Ox 94 L 10/03/24 11:40 FiO2 Intake & Output 10/02/24 10/03/24 10/03/24 18:59 06:59 18:59 Intake Total 120 240 Balance 120 240 Weight 90.718 kg 93.3 kg Intake: Oral 120 240 Other: Voiding Method Toilet Toilet Toilet # Voids 1 1 # Bowel Movements 1 1 - Exam GENERAL EXAM: Alert, 74-year-old white female, without signs of CO2 narcosis, on 2 L/min nasal cannula, comfortable in no apparent distress. HEAD: Normocephalic and atraumatic EYES: Normal reaction of pupils, equal size. NOSE: Clear with pink turbinates. THROAT: No erythema or exudates. NECK: No masses, no JVD. CHEST: No chest wall deformity. LUNGS: Equal air entry with diffuse expiratory wheezing heard bilaterally throughout. No conversational dyspnea or accessory muscle use while at rest CVS: S1 and S2 normal with no audible murmur, regular rhythm. No extra heart sounds ABDOMEN: No hepatosplenomegaly, active bowel sounds, no guarding or rigidity. SPINE: No scoliosis or deformity SKIN: No rashes CENTRAL NERVOUS SYSTEM: No focal deficits, tone is normal in all 4 extremities. EXTREMITIES: There is no peripheral edema, clubbing, or cyanosis. Peripheral pulses are intact. - Labs CBC & Chem 7: 10/03/24 06:03 10/03/24 06:03 Labs: Abnormal Lab Results - Last 24 Hours (Table) 10/03/24 10/03/24 Range/Units 06:03 06:03 WBC 13.31 H (4.50-10.00) 10*3/uL MCH 26.1 L (27.0-32.0) pg MCHC 30.3 L (32.0-37.0) g/dL Immature Gran # 0.10 H (0.00-0.04) 10*3/uL Neutrophils # (Manual) 12.37 H (1.3-7.7) k/uL Lymphocytes # (Manual) 0.80 L (1.0-4.8) k/uL BUN 36 H (7-17) mg/dL Glucose 132 H (74-99) mg/dL Microbiology - Last 24 Hours (Table) 10/01/24 18:23 Blood Culture - Preliminary Blood 10/01/24 21:46 Gram Stain - Preliminary Sputum Assessment and Plan Assessment: Acute exacerbation of COPD, secondary to acute tracheobronchitis; chest x-ray showing stable cardiac silhouette with interstitial prominence. No focal consolidations. Viral 4 Plex screen negative for influenza A/B, RSV, COVID.. The sputum sample was positive for Moraxella catarrhalis and exacerbation is likely secondary to bronchitis related to Moraxella and the patient is on Zithromax. Acute hypoxemic respiratory failure, currently on 2 L/min nasal cannula, secondary to above Acute leukocytosis Anemia, no reported blood loss Hypertension History of hyperlipidemia Obesity, with a BMI of 37.8 kg/m Former tobacco smoker, quit approximately 15 years ago Plan: Clinically improving Continue Zithromax for Moraxella catarrhalis Side effects related to IV Solu-Medrol the patient will be started on a prednisone burst taper Continue Symbicort and Spiriva as maintenance of DuoNeb Treatments [id number]. The patient utilizes Trelegy Ellipta on outpatient basis Procalcitonin level was at 0.24 at 0.23 respectively x 2 We will continue to follow Time with Patient: Greater than 30
[2024-10-04 07:24] LABS: HCT 41.3 % (37.2-46.3); HGB 12.7 g/dL (12.0-15.0); MCH 27.3 pg (27.0-32.0); MCHC 30.8 g/dL (32.0-37.0); MCV 88.8 fL (80.0-97.0); Mean Platelet Volume 10.4 fL (9.5-12.2); Platelet Count 239 10*3/uL (140-440); RBC 4.65 10*6/uL (4.10-5.20); RDW 14.9 % (11.5-14.5); WBC 15.14 10*3/uL (4.50-10.00)
[2024-10-04 08:00] LABS: African American GFR (CKD) 77 (>60 ml/min/1.73 sqM); Anion Gap 9 mmol/L; Blood Urea Nitrogen 39 mg/dL (7-17); Calcium 9.7 mg/dL (8.4-10.2); Carbon Dioxide 25 mmol/L (22-30); Chloride 108 mmol/L (98-107); Glucose 98 mg/dL (74-99); Magnesium 2.3 mg/dL (1.6-2.3); Non-African American GFR(CKD) 67 (>60 ml/min/1.73 sqM); Potassium 4.2 mmol/L (3.5-5.1); Sodium 142 mmol/L (137-145)
[2024-10-04 08:52] LABS: Lymphocytes # (M) 1.06 k/uL (1.0-4.8); Monocytes # (M) 0.76 k/uL (0-1.0); Neutrophils # (M) 13.32 k/uL (1.3-7.7); Neutrophils % (M) 88 %; Nucleated Red Blood Cells 0 /100 WBC (0-0); Total Cells Counted 100
[2024-10-04 08:58] LABS: RBC Morphology Normal
[2024-10-04 09:13] VITALS: RESP 18; TEMP 98
[2024-10-04] MEDS: predniSONE 20 MG TAB PO SCH (09:18)
[2024-10-04 12:53] VITALS: BP 128/78; PULSE 68
--- NOTE | 2024-10-04 14:26 | P.PN ---
Subjective Progress Note Date: 10/04/24 Patient is a 74-year-old female with past medical history significant for hypertension, hyperlipidemia, and COPD. She recently has moved to [place] from [place] last summer. Has not been established with a local PCP yet. Does have history of COPD. Usually maintained on a Trelegy maintenance inhaler, with albuterol nebs and inhaler as needed. Not normally oxygen dependent. She is a previous tobacco smoker, quit approximately 15 years ago. Chief complaint shortness of breath progressively worsening over the last week or so. Associated wheezing, chest tightness, increased cough with mostly white sputum production, intermittent low-grade fevers. Symptoms did reportedly improve on Sunday and then worsened. No recent outpatient evaluation/treatment. No notable sick contacts. No recent travel. Workup in the emergency department including a chest x-ray showing stable cardiac silhouette with interstitial prominence. No focal consolidations. Denies history of heart failure. Denies chest pain, heart palpitations, syncopal events, orthopnea, lower extremity edema. Viral 4 Plex screen negative for influenza A/B, RSV, COVID. She was febrile with a temperature of 99.9 F on arrival. CBC: WBC count 13.9, hemoglobin 7.7, platelets 244. CMP with a sodium 135, potassium 3.9, chloride 101, serum bicarb 26, BUN 20, creatinine 0.86, glucose 124. Lactic 1.1. LFTs not elevated. NT proBNP low at 86. Urinalysis unremarkable for infection. Patient currently being evaluated in the emergency department. Breathing is nonlabored, currently on 2 L/min nasal cannula. Her COPD is active and she is audibly wheezing. She has been started on combination of DuoNebs [id number], Symbicort inhaler, and IV Solu-Medrol. Empirically started on a combination of azithromycin and Rocephin in the ED. Current vital signs: Temperature 98.6 F, heart rate 67 bpm, blood pressure 134/74 mmHg, nontachypneic, SpO2 recorded at 95% on 3 L/min nasal cannula. On 10/03/2024, the patient is being seen for a follow-up. The patient is feeling better compared to yesterday and that she seems to be less short of breath. She is still having some oxygen desaturation with activity. Pulse ox dropped down to 88% while walking. Otherwise, on 2 L of oxygen by nasal cannula, her pulse ox is around 92 to 94%. She continues to receive treatment for acute COPD exacerbation. She encountered side effects including insomnia and some restlessness while being on IV Solu-Medrol the patient was taken off the IV Solu-Medrol as currently she is on prednisone burst taper starting with 40 mg p.o. daily. She is also on Spiriva, Symbicort and DuoNeb treatments [id number]. She has been maintained on Trelegy Ellipta on an outpatient basis. Sputum sample is positive for Moraxella catarrhalis and the patient remains on Zithromax. The white cell count is 13 with a hemoglobin 12 and a platelet count of 211. Electrolytes are all within normal limits. Normal renal function. Legionella urine antigen was negative. Viral screen was also negative. On 10/04/2024, the patient is doing well. No specific complaints. Oxygenation has improved and the patient is currently on room air oxygen with a pulse ox of 93%. She had an acute exacerbation secondary to Moraxella catarrhalis tracheobronchitis and the patient remains on Zithromax. The patient was also taken off the IV Solu-Medrol started on prednisone burst taper. She is on Spiriva. She is on DuoNeb updrafts. Is on Symbicort. Ambulating. No complaints. White cell count of 15 with a hemoglobin 12.7 and a platelet count of 239. Electrolytes are all within normal limits. Objective - Vital Signs Vital signs: Vital Signs Temp 98 F 10/04/24 09:11 Pulse 85 10/04/24 09:11 Resp 18 10/04/24 09:11 BP 154/80 10/04/24 09:11 Pulse Ox 93 L 10/04/24 09:11 FiO2 Intake & Output 10/03/24 10/04/24 10/04/24 18:59 06:59 18:59 Intake Total 750 540 130 Output Total 0 Balance 750 540 130 Weight 193.6 kg Intake: IV 10 Invasive Line 2 10 Oral 750 540 120 Output: Gastric Drainage 0 Urine 0 Stool 0 Urine/Stool Mix 0 Emesis 0 Oral Regurgitation 0 Other 0 Other: Voiding Method Toilet Toilet Toilet External Catheter # Voids 2 1 0 # Bowel Movements 1 0 - Exam GENERAL EXAM: Alert, 74-year-old white female, without signs of CO2 narcosis, on room air oxygen HEAD: Normocephalic and atraumatic EYES: Normal reaction of pupils, equal size. NOSE: Clear with pink turbinates. THROAT: No erythema or exudates. NECK: No masses, no JVD. CHEST: No chest wall deformity. LUNGS: Equal air entry with diffuse expiratory wheezing heard bilaterally throughout. No conversational dyspnea or accessory muscle use while at rest CVS: S1 and S2 normal with no audible murmur, regular rhythm. No extra heart sounds ABDOMEN: No hepatosplenomegaly, active bowel sounds, no guarding or rigidity. SPINE: No scoliosis or deformity SKIN: No rashes CENTRAL NERVOUS SYSTEM: No focal deficits, tone is normal in all 4 extremities. EXTREMITIES: There is no peripheral edema, clubbing, or cyanosis. Peripheral pulses are intact. - Labs CBC & Chem 7: 10/04/24 07:05 10/04/24 07:05 Labs: Abnormal Lab Results - Last 24 Hours (Table) 10/04/24 10/04/24 Range/Units 07:05 07:05 WBC 15.14 H (4.50-10.00) 10*3/uL MCHC 30.8 L (32.0-37.0) g/dL Immature Gran # 0.27 H (0.00-0.04) 10*3/uL Neutrophils # (Manual) 13.32 H (1.3-7.7) k/uL Chloride 108 H (98-107) mmol/L BUN 39 H (7-17) mg/dL Microbiology - Last 24 Hours (Table) 10/01/24 21:46 Gram Stain - Final Sputum Sputum Culture - Final Moraxella(branhamella) catarra 10/01/24 18:23 Blood Culture - Preliminary Blood Assessment and Plan Assessment: Acute exacerbation of COPD, secondary to acute tracheobronchitis; chest x-ray showing stable cardiac silhouette with interstitial prominence. No focal consolidations. Viral 4 Plex screen negative for influenza A/B, RSV, COVID.. The sputum sample was positive for Moraxella catarrhalis and exacerbation is likely secondary to bronchitis related to Moraxella and the patient is on Zithromax. Acute hypoxemic respiratory failure, improved and the patient is currently on room air oxygen Acute leukocytosis, stable Anemia, no reported blood loss Hypertension History of hyperlipidemia Obesity, with a BMI of 37.8 kg/m Former tobacco smoker, quit approximately 15 years ago Plan: Clinically improving Continue Zithromax for Moraxella catarrhalis Start prednisone burst taper Continue Symbicort and Spiriva as maintenance of DuoNeb, the patient can be transitioned to Trelegy Ellipta at the time of discharge Complete the course of Zithromax Procalcitonin level was at 0.24 at 0.23 respectively x 2 We will continue to follow possible discharge today or within next 24 hours.
--- NOTE | 2024-10-04 14:38 | P.DS ---
Providers Date of admission: 10/01/24 20:31 Discharge Diagnosis: Acute hypoxic respiratory failure secondary to COPD exacerbation likely related to bronchitis related to Moraxella Normocytic anemia Right lower extremity swelling Asthma Hyperlipidemia Hypertension Obesity Hospital Course: Patient is a 74-year-old female with COPD not on home oxygen, asthma, hyperlipidemia and hypertension here for shortness of breath. Patient reported that she has been having shortness of breath with a productive cough, fevers about 101 Fahrenheit since last week. She tried taking Tylenol Motrin and a breathing treatment since that time but her symptoms have not improved. Her shortness of breath worsened this week which led her to seek care. She denied chest pain, palpitations, extremity swelling, calf pain, recent travel or hospitalization. She was exposed to her daughter that was also having cough and fever last week. On admission: Vitals: Temperature 99.9 F, pulse rate 84, respiratory rate 18, blood pressure 140/97, O2 saturation 86% on room air. 92% on 3L nasal cannula. Labs: WBC 13.91, hemoglobin 7.7, MCV 85, platelet count 244,000, sodium 135, bicarb 26, BUN 20, creatinine 0.86, glucose 124. Cepheid 4 Plex negative. Coagulation panel unremarkable. Liver enzymes unremarkable. Imaging: Chest x-ray showed pulmonary vascular congestion. ED documentation reviewed. IV antibiotics, 1 L bolus of lactated Ringer's and IV Solu-Medrol given in the ED. Patient was admitted for further management on acute hypoxic respiratory failure secondary to COPD exacerbation along with pulmonology consultation. While admitted patient was placed on proper breathing treatment for acute COPD exacerbation. She also received IV steroids that were later converted to oral steroids. She required 2 L of oxygen via nasal cannula. She previously not been on oxygen prior to this hospitalization. She she will have to finish a steroid taper postdischarge. Repeat CXR was displaying right basilar patchy airspace opacity. Procalcitonin were within normal limit x 2. Blood cultures showed no growth. However sputum culture showed growth of Moraxella catarrhalis for which she was placed on the proper antibiotics for it and will continue short course of antibiotic postdischarge. Patient ultimately relieved from symptoms and is hemodynamically stable. Patient was evaluated for home oxygen and does not require any home oxygen at this time. She is to follow-up with her primary care physician and established with pulmonology. She can be discharged home today. Patient seen and examined at bedside. Vital signs reviewed and stable. Physical examination: Vital signs reviewed General: non toxic, no distress, appears at stated age, normal weight Derm: no unusual rashes/lesions, warm Head: atraumatic, normocephalic, symmetric Eyes: EOMI, anicteric sclera, pupils equal round reactive to light ENT: Nose and ears atraumatic Neck: No cervical lymphadenopathy, trachea midline, supple Mouth: no lip lesion, mucus membranes moist Cardiovascular: S1S2 reg, no murmur, positive dorsalis pedis pulse bilateral, no edema Lungs: Bilateral diffuse expiratory wheezing, no rhonchi, no rales, no accessory muscle use Abdominal: soft, nontender to palpation, no guarding Ext: muscle strength 5 out of 5 in all 4 extremities grossly, no gross muscle atrophy Neuro: CN II-XI grossly intact, no gross focal neuro deficits Psych: Alert, oriented to person, place, and time A total of greater than 30 minutes of time were spent preparing this complex discharge summary. Patient was discharge on October 04, 2024 at 12:18 PM. Simon Gonzalez MD PGY-1 IM Dictation was produced using [employer] dictation software. please excuse any grammatical, word or spelling errors. Expected date of discharge: 10/04/24 Attending physician: Carl Tejeda MD Consults: 10/01/24 20:31 Consult Physician Routine Consulting Provider: Ashleigh Mark Consult Reason/Comments: hypoxia, copd, atypical pneumonia/bronchitis Do you want consulting provider notified?: Yes Primary care physician: Colby Mcdonald Hospital Course: I have seen and evaluated the patient today. Discussed with the resident and agree with the residents finding and plan as documented in the resident's note. Feeling better breathing is better. Feels comfortable being discharged. Exam remarkable for wheezing left upper lobe. Patient Condition at Discharge: Stable Plan - Discharge Summary Discharge Rx Participant: No New Discharge Prescriptions: New Azithromycin [Zithromax] 500 mg PO DAILY 2 Days #2 tab Albuterol Inhaler [Ventolin Hfa Inhaler] 2 puff INHALATION Q4HR PRN #1 gm PRN Reason: Dyspnea predniSONE 0 mg PO DIRECTED #14 tab Continue Albuterol Sulfate [Ventolin HFA] 2 puff INHALATION RT-Q4H PRN PRN Reason: Wheezing Fluticasone/Umeclidin/Vilanter [Trelegy Ellipta 100-62.5-25] 1 puff INHALATION RT-DAILY amLODIPine [Norvasc] 5 mg PO DAILY Lovastatin [Mevacor] 40 mg PO HS Vitamin D3 Chewable(Unknown Dose) 2 tab PO DAILY Montelukast [Singulair] 10 mg PO HS Discharge Medication List Albuterol Sulfate [Ventolin HFA] 2 puff INHALATION RT-Q4H PRN 10/01/24 [History] Fluticasone/Umeclidin/Vilanter [Trelegy Ellipta 100-62.5-25] 1 puff INHALATION RT-DAILY 10/01/24 [History] Lovastatin [Mevacor] 40 mg PO HS 10/01/24 [History] Montelukast [Singulair] 10 mg PO HS 10/01/24 [History] Vitamin D3 Chewable(Unknown Dose) 2 tab PO DAILY 10/01/24 [History] amLODIPine [Norvasc] 5 mg PO DAILY 10/01/24 [History] Albuterol Inhaler [Ventolin Hfa Inhaler] 2 puff INHALATION Q4HR PRN #1 gm [Rx] Azithromycin [Zithromax] 500 mg PO DAILY 2 Days #2 tab 10/04/24 [Rx] predniSONE 0 mg PO DIRECTED #14 tab 10/04/24 [Rx] Follow up Appointment(s)/Referral(s): Colby Mcdonald MD [Primary Care Provider] - 1-2 days (please call to schedule.) Ashleigh Makr MD [STAFF PHYSICIAN] - 1 Week (please call to schedule. ) Patient Instructions/Handouts: COPD (Chronic Obstructive Pulmonary Disease) (DC) Activity/Diet/Wound Care/Special Instructions: Please follow up with PCP and pulmonology. Please finish prednisone taper and azithromycin course as well. Discharge Disposition: HOME SELF-CARE
[2024-10-04] MEDS ORDERED: AZITHROMYCIN 500 MG in SODIUM CHLORIDE 0.9% 250 ML IVPB SCH (18:00)
== END 2024-10-04 15:29 | disposition home or self-care (01) | DRG 190 ==
LOC: EC 16:55 → 3SCARD 20:31
PROVIDERS: ADMIT Internal Medicine; ATTEND Internal Medicine
DX: J44.0 Chronic obstructive pulmonary disease with (acute) lower respiratory infection (principal); J96.01 Acute respiratory failure with hypoxia; J44.1 Chronic obstructive pulmonary disease with (acute) exacerbation; E66.9 Obesity, unspecified; I10 Essential (primary) hypertension; D50.9 Iron deficiency anemia, unspecified; Z68.37 Body mass index [BMI] 37.0-37.9, adult; B96.89 Other specified bacterial agents as the cause of diseases classified elsewhere; J20.9 Acute bronchitis, unspecified; E78.5 Hyperlipidemia, unspecified; M79.89 Other specified soft tissue disorders; Z87.891 Personal history of nicotine dependence; Z79.51 Long term (current) use of inhaled steroids; Z79.899 Other long term (current) drug therapy
CPT/HCPCS: 36415; 71045; 71046; 80048; 80053; 81001; 82607; 82746; 83540; 83550; 83605; 83735; 83880; 84145; 84466; 85025; 85610; 85730; 86140; 87040; 87070; 87205; 87449; 87636; 93005; 94640; 94760; 96365; 96367; 96372; 96375; 99291